=== PATIENT | female | born 1955 | race Caucasian/White ===

== ENCOUNTER 2016-11-17 16:15 | Emergency (ER) | payer MEDICARE, OTHER ==
--- NOTE | 2016-11-17 19:40 | ED CLINICAL REPORT ---
Clinical Report - Physicians/Mid Levels [facility] [address] [place] [address] 11/17/2016 16:16 Patient: [facility]OU [facility]IA [facility] [id number] Time Seen: 16:39 Nov 17 2016. Arrived- By private vehicle. Historian- patient. CPT: ER phys charges level 4 (#[id number]). HISTORY OF PRESENT ILLNESS Chief Complaint: LOWER EXTREMITY PAIN and SWELLING. Is still present. Severity is described as being moderate. It has become recently worse. The quality is noted to be sharp, aching and "pain". Symptoms located in the area of the right ankle, right foot, left foot and left ankle. The patient has had redness and swelling. She has had difficulty walking. No bladder dysfunction, bowel dysfunction, sensory loss or motor loss. Patient denies an injury. Similar symptoms previously: None. Recent medical care: Not recently seen/assessed. REVIEW OF SYSTEMS No cough, chest pain, difficulty breathing, fever or enlarged lymph nodes. No neck pain, back pain, headache, sore throat or abdominal pain. No vomiting, black stools or difficulty with urination. The patient has had skin rash. All systems otherwise negative, except as recorded above. PAST HISTORY ( Constipation. Lifestyle / Substance Problems. Brain Tumor. Nephrolithiasis. Healing Abscess. Abscess Check. Tetanus Status. Abscess. Cellulitis. Arthritis. Hypertension. ADDITIONAL SURGERIES: Brain Tumor. Cholecystectomy.). Medications: Tylenol Arthritis Pain Oral. Hydrochlorothiazide Oral (has been out for a month). Allergies: None. SOCIAL HISTORY Heavy tobacco smoker (cigarette)- less than 1 pack per day. History of drug use: marijuana. No alcohol use. ADDITIONAL NOTES The nursing notes have been reviewed. PHYSICAL EXAM Vital Signs: 11/17/2016 16:25 BP: 153/95. HR: 108. RR: 18. O2 saturation: 98%. Temp: 99.3 F. Pain level now: 10/10. Appearance: Alert. No acute distress. Eyes: Eyes normal inspection. ENT: Pharynx normal. Neck: Normal inspection. CVS: Normal heart rate and rhythm. Heart sounds normal. No cardiac murmur. Respiratory: No respiratory distress. Breath sounds normal. Abdomen: Soft and nontender. Skin: Skin intact. Skin warm. Moderate, erythematous, blanching skin rash located on the right foot and left foot. No skin rash involving the palms of the hands or soles of the feet. Extremities: Bilateral moderate 2+ pitting edema of the lower extremities involving both feet and both ankles. (Tenderness and erythema over both ankles and feet.). Neuro: Oriented X 3. No motor deficit. No sensory deficit. LABS, X-RAYS, AND EKG Laboratory Tests: UA-Culture if indicated: (SHRADDHA: 11/17/2016 17:30) ( [facility] [place] [facility]11[facility] Final results Test Result Flag Units (Reference) URINE COLOR WARREN URINE APPEARANCE TURBID URINE GLUCOSE NEGATIVE (NEGATIVE) URINE BILIRUBIN NEGATIVE (NEGATIVE) URINE KETONE NEGATIVE (NEGATIVE) URINE SPECIFIC GRAVITY 1.020 (1.010-1.030) URINE PH 5.5 (5.0-8.0) URINE PROTEIN 1+ (NEGATIVE) URINE UROBILINOGEN 2.0 EU/dL (0.2-1.0) The urobilinogen reagent area may react with interferingsubstances known to react with Jhonathan's reagent such asp-aminosalicylic acid and sulfonamides. Atypical colorreactions may be obtained in the presence of highconcentrations of p-aminobenzoic acid. The absence ofurobilinogen cannot be determined with this test. URINE NITRITE POSITIVE (NEGATIVE) URINE BLOOD 3+ (NEGATIVE) URINE LEUK ESTERASE POSITIVE (NEGATIVE) URINE RBC 10-25 rbc/hpf (0-1) URINE WBC 5-10 wbc/hpf (0-1) URINE EPITHELIAL CELLS 3-5 EPI/hpf (0-5) URINE BACTERIA MANY (4+) (NONE SEEN) URINE COMMENT CULTURE INDICATED URINE CULTURES ARE SET-UP BASED ON THE FOLLOWING CRITERIA:POSITIVE NITRITEPOSITIVE LEUKOCYTE ESTERASEGREATER THAN 10 WHITE BLOOD CELLSMODERATE (2+) OR GREATER BACTERIA Monoscreen: (SHRADDHA: 11/17/2016 17:00) ( [facility] [place] 11/17/2016 19:17) Final results Test Result Flag Units (Reference) MONOSCREEN NEGATIVE (NEGATIVE) CBC w Diff: (SHRADDHA: 11/17/2016 17:00) ( MsgRcvd 11/17/2016 17:54) Final results Test Result Flag Units (Reference) WHITE BLOOD COUNT 2.9 L K/uL (4.5-11.5) RED BLOOD COUNT 4.52 M/uL (4.00-5.20) HEMOGLOBIN 12.9 gm/dL (12.0-16.0) HEMATOCRIT 38.2 % (36.0-46.0) MEAN CELL VOLUME 85 fL (80-100) MEAN CORPUSCULAR HGB 29 pg (26-34) MEAN CORPUSCULAR HGB CONC 34 g/dL (31-37) RED CELL DISTRIBUTION WIDTH 15.5 H % (11.6-14.8) PLATELET COUNT 209 K/uL (150-400) POLY % 27 L % (50-75) BAND % 0 % (0-8) LYMPH 53 H % (25-40) MONO 17 H % (3-14) EOSINOPHIL % 2 % (0-4) BASOPHIL % 1 % (0-2) METAMYELOCYTE % 0 % (0-1) MYELOCYTE 0 % (0-1) OTHER CELL TYPE 0 POLYCHROMASIA 1+ ANISOCYTOSIS 1+ Urine Drug Screen: (SHRADDHA: 11/17/2016 17:30) ( MsgRcvd 11/17/2016 18:02) Final results Test Result Flag Units (Reference) AMPHETAMINE/METHAMPHETAMINE POSITIVE H (NEGATIVE) BARBITURATE NEGATIVE (NEGATIVE) BENZODIAZEPINE NEGATIVE (NEGATIVE) CANNABINOID POSITIVE H (NEGATIVE) COCAINE NEGATIVE (NEGATIVE) ECSTASY NEGATIVE (NEGATIVE) METHADONE NEGATIVE (NEGATIVE) OPIATE POSITIVE H (NEGATIVE) The urine drug screen is a qualitative screening test fordrug overdose and abuse. All screen results should beconsidered as presumptive.Drugs screened for are as follows:BenzodiazepinesCocaineAmphetamines/MetamphetaminesTHC (Tetrahydrocannabinol)OpiatesBarbituratesEcstasyMethadonePositive results are unconfirmed. For confirmation, notifythe lab for the specimen to be sent to the reference lab.All confirmations must be performed by a differentmethodology.The ingestion of natural herbal and plant productscontaining Ephedra/Ephedra metabolites can produce in urineone or more substances capable of cross reacting withamphetamine/methamphetamine immunoassays. These testsprovide a preliminary result only. A more specificalternative chemical method must be used to obtain aconfirmed analytical result. BNP: (SHRADDHA: 11/17/2016 17:00) ( [facility] [place] 11[facility]17/2016 17:40) Final results Test Result Flag Units (Reference) B-TYPE NATRIURETIC PEPTIDE 35.0 pg/ml (5-100) [id number]: (SHRADHDA: 11/17/2016 17:00) ( DcgRcvd 11/17/2016 18:14) Final results Test Result Flag Units (Reference) PROCALCITONIN <0.5 ng/mL (0-0.5) PCT Concentration: Interpretation : Risk/option for action PCT <=0.5 ng/mL : Systemic : Low risk forinfection(sepsis): progression to severeis not likely. : systemic infection.Local bacterial : CAUTION-PCT levelsinfection is : below 0.5 ng/mL do notpossible. : exclude an infection,because localizedinfections (withoutsystemic signs) may beassociated with suchlow levels. If PCT ismeasured very earlyafter a bacterialchallenge (usually <6hours), these valuesmay still be low. Inthis case PCT shouldbe re-assessed 6-24hours later. PCT >0.5 and : Systemic infection: Moderate risk for<= 2 ng/mL : (sepsis) is : progression to severepossible, but : systemic infection.other conditions : The patient should beare known to : closely monitoredelevate PCT. : both clinically andby re-assessing PCTwithin 6-24 hours. PCT > 2 ng/mL : Systemic infection: High risk for(sepsis) is likely: progression to severeunless other : systemic infection.causes are known. : PCT >= 10 ng/mL : Important systemic: High likelihood ofinflammatory : severe sepsis orresponse, almost : septic shock.exclusively due to:severe bacterial :sepsis or septic :shock. : CHEM 13 PANEL: (SHRADDHA: 11/17/2016 17:00) ( MsgRcvd 11/17/2016 18:01) Final results Test Result Flag Units (Reference) GLUCOSE 110 mg/dL (70-110) BUN 28 H mg/dL (7-18) CREATININE 1.0 mg/dL (0.6-1.3) Estimated GFR 59.71 mL/min Estimated GFR- >60 mL/min Note: Persistent reduction over 3 months in eGFR<60 mL/min/1.73 m2 defines CKD. Patients with eGFR values>=60 mL/min/1.73 m2 may also have CKD if evidence ofpersistent proteinuria. Additional information may be foundat www.kidney.org. SODIUM 139 mmol/L (136-145) POTASSIUM 3.1 L mmol/L (3.5-5.1) CHLORIDE 100 mmol/L (98-107) CARBON DIOXIDE 34 H mmol/L (21-32) CALCIUM 9.2 mg/dL (8.5-10.1) TOTAL PROTEIN 8.8 H g/dL (6.4-8.2) ALBUMIN 3.0 L g/dL (3.3-5.0) BILIRUBIN, TOTAL 0.6 mg/dL (0.0-1.0) ALKALINE PHOSPHATASE 77 U/L (46-116) AST (SGOT) 37 U/L (15-37) ALT (SGPT) 30 U/L (12-78) CPK 218 U/L (24-260) MAGNESIUM 2.0 mg/dL (1.8-2.4) TROPONIN I <0.05 L ng/mL (0.00-1.5) TROPONIN REFERENCE RANGE:<0.1 NEGATIVE0.1-1.5 INDETERMINANT>1.5 POSITIVE C-REACTIVE PROTEIN 9.7 H mg/dL (0.0-0.9) . PROGRESS AND PROCEDURES Course of Care: Rocephin 2g IV for UTI Prednisone for inflammation of the feet and ankles. Pt developed a drug rash after getting the rocephin so benadryl 25 mg IV and solumedrol 80 mg IV Patient is stable. Symptoms better. Patient/family counseled. Disposition: Discharged. Condition: stable. CLINICAL IMPRESSION Substance abuse problems: abuse of cannabis, opiates and methamphetamine. Acute urinary tract infection with cystitis. Bilateral ankle and foot pain due to arthritis. Leg edema and erythema bilaterally due to inflammation Hypokalemia due to diuretic. Drug rash due to rocephin. INSTRUCTIONS Warnings: Further evaluation is necessary. GENERAL WARNINGS: Return or contact your physician immediately if your condition worsens or changes unexpectedly, if not improving as expected, or if other problems arise. Your Current Medications: CONTINUE TAKING THE FOLLOWING MEDICATIONS: Hydrochlorothiazide Oral : has been out for a month. Tylenol Arthritis Pain Oral. Prescription Medications: Trimethoprim-Sulfamethoxazole DS: take 1 tablet orally every 12 hours for 7 days. Dispense fourteen (14). No refills. Prednisone 40 mg a day for 3 days. KCL 20 meq po q day for 5 days. OTC Medications: Motrin (available over the counter): take according to label instructions. Follow-up: Follow up with your doctor Monday in four days. Call for an appointment. Understanding of the discharge instructions verbalized by patient. (Electronically signed by Ramón Ortega MD 11/19/2016 19:54) Addenda for MARYLOU SANTAMARIA VisitID: [id number] Date: 11/17/2016 11/19/2016 17:18 Positive UA for e. Coli, reviewed by Bobbi Ang PA-C. Change RX to macrobid 100mg BID X 7days. Left VM on primary number, awaiting return call (Electronically signed by Cait Corley R.N. - 11/19/2016 17:18)
--- NOTE | 2016-11-17 19:40 | ED ORDER SUMMARY ---
..... Patient: MARYLOU SANTAMARIA OrderSheet [facility] VisitID: [id number] [place] [address] 61y, F Registration Date/Time: 11/17/2016 ORDER SHEET Weight: 68.0 kg (stated) Allergies: None GENERAL ORDERS: Cardiac Panel Stat (16:46 11/17/2016 Adilson VELIZ) (Ack 16:50 [facility] ER Tech1) (17:15 Karen R.N.) BNP Urgent (16:46 11/17/2016 Adilson VELIZ) (Ack 16:50 IJ[facility] ER Tech1) (17:15 Karen R.N.) UA-Culture if indicated Urgent (16:46 11/17/2016 Adilson VELIZ) (Ack 16:50 [facility] ER Tech1) (17:34 Karen R.N.) Urine Drug Screen Urgent (16:46 11/17/2016 Adilson VELIZ) (Ack 16:50 [facility] ER Tech1) (17:34 Karen R.N.) PCT (Procalcitonin) Urgent (16:46 11/17/2016 Adilson VELIZ) (Ack 16:50 [facility] ER Tech[facility]) (17:15 Karen R.N.) CRP Urgent (16:46 11/17/2016 Adilson VELIZ) (Ack 16:50 [facility] ER Tech[facility]) (17:15 Karen R.N.) Monoscreen Urgent (18:42 11/17/2016 Adilson VELIZ) (Ack 18:44 [facility] ER Tech1) (19:51 [facility] ER Cell Biologist) MEDICATION ORDERS: Prednisone PO 40 mg (NOW) (19:37 11/17/2016 Adilson VELIZ) (19:50 TBraza R.N.) IV FLUIDS: IV Saline Lock (16:46 11/17/2016 Adilson VELIZ) (17:15 Karen R.N.) Rocephin IV 2 gm/50mL (NOW) (18:42 11/17/2016 Adilson VELIZ) (19:14 TBraza R.N.) Benadryl IV 25 mg (NOW) (19:43 11/17/2016 Adilson VELIZ) (19:49 Meme R.N.) Solu-MEDROL IV 60 mg (NOW) (19:43 11/17/2016 Adilson VELIZ) (19:49 Meme R.N.) ORDER SHEET NOTES: [Electronically signed by Tarah Jurado R.N. (20:19 11/17/2016)] [Electronically signed by Ramón Ortega MD (19:54 11/19/2016)] [Electronically locked/signed by Tarah Jurado R.N. (20:19 11/17/2016)]
--- NOTE | 2016-11-17 19:40 | ED ORDER SUMMARY ---
..... Patient: MARYLOU SANTAMARIA OrderSheet [facility] VisitID: [id number] [place] [address] 61y, F Registration Date/Time: 11/17/2016 ORDER SHEET Weight: 68.0 kg (stated) Allergies: None GENERAL ORDERS: Cardiac Panel Stat (16:46 11/17/2016 Adilson VELIZ) (Ack 16:50 [facility] ER Tech[facility]) (17:15 Karen R.N.) BNP Urgent (16:46 11/17/2016 Adilson VELIZ) (Ack 16:50 IJurca ER Tech1) (17:15 Karen R.N.) UA-Culture if indicated Urgent (16:46 11/17/2016 Adilson VELIZ) (Ack 16:50 [facility] ER Tech1) (17:34 Karen R.N.) Urine Drug Screen Urgent (16:46 11/17/2016 Adilson VELIZ) (Ack 16:50 [facility] ER Tech1) (17:34 Karen R.N.) PCT (Procalcitonin) Urgent (16:46 11/17/2016 Adilson VELIZ) (Ack 16:50 [facility] ER Tech1) (17:15 Karen R.N.) CRP Urgent (16:46 11/17/2016 Adilson VELIZ) (Ack 16:50 [facility] ER Tech1) (17:15 Karen R.N.) Monoscreen Urgent (18:42 11/17/2016 Adilson VELIZ) (Ack 18:44 [facility] ER Tech1) (19:51 [facility] ER Blast Furnace Supervisor) MEDICATION ORDERS: Prednisone PO 40 mg (NOW) (19:37 11/17/2016 Adilson VELIZ) (19:50 TBraza R.N.) IV FLUIDS: IV Saline Lock (16:46 11/17/2016 Adilson VELIZ) (17:15 Karen R.N.) Rocephin IV 2 gm/50mL (NOW) (18:42 11/17/2016 Adilson VELIZ) (19:14 TBraza R.N.) Benadryl IV 25 mg (NOW) (19:43 11/17/2016 Adilson VELIZ) (19:49 Meme R.N.) Solu-MEDROL IV 60 mg (NOW) (19:43 11/17/2016 Adilson VELIZ) (19:49 Meme R.N.) ORDER SHEET NOTES: [Electronically signed by Tarah Jurado R.N. (20:19 11/17/2016)] [Electronically signed by Ramón Ortega MD (19:54 11/19/2016)] [Electronically locked/signed by Tarah Jurado R.N. (20:19 11/17/2016)]
--- NOTE | 2016-11-17 19:40 | ED NURSING NOTES ---
Clinical Report - Nurses [facility] [place] [address] 11/17/2016 16:16 Patient: MARYLOU SANTAMARIA [facility] [id number] TRIAGE Triage time 16:25. Acuity: LEVEL 3. Chief Complaint: RIGHT LOWER EXTREMITY PAIN, SWELLING and REDNESS. LEFT LOWER EXTREMITY PAIN, SWELLING and REDNESS. Alert. No acute distress. HEYDI COMA SCORE: Heydi Coma Scale: 15- eyes open spontaneously (4); best verbal response- oriented x 4 (5); best motor response- obeys commands (6). --16:31 Caroline Arrington R.N. 16:25 11/17/16. BP: 153/95. HR: 108. RR: 18. O2 saturation: 98%. Temp: 99.3 F (oral). Pain level now: 05/09. --16:31 Caroline Arrington R.N. Weight: 68 kg stated. Height/Length: 66 inches Per Patient. BMI: 24.2. --16:30 Caroline Arrington R.N. Medications Hydrochlorothiazide Oral (has been out for a month). --16:27 Caroline Arrington R.N. Tylenol Arthritis Pain Oral. --16:30 Caroline Arrington R.N. The following entry was struck and corrected by Caroline Arrington R.N., 16:28 (11/17/16) Reason for correction - other(correction). <<STRICKEN ENTRY-- Hydrochlorothiazide Oral. --16:27 Caroline Arrington R.N. --END STRIKE>>. Medication/allergy information source: the patient. --16:31 Caroline Arrington R.N. Allergies None. --16:28 Caroline Arrington R.N. History Arrived by private vehicle. Historian: patient. Unaccompanied. Primary physician (none). No injury occurred. This occurred (about 1 week). SOCIAL HX: Heavy tobacco smoker- less than 1 pack per day. History of drug use: marijuana. No alcohol use. FALL RISK ASSESSMENT: Fall risk assessment completed. No fall risk identified. FUNCTIONAL ASSESSMENT: Functional assessment: no impairments noted. Functional assessment performed: independent with the activities of daily living; mobility impairment present- this mobility impairment is a new problem. LEARNING NEEDS ASSESSMENT: The learning needs assessment revealed no barriers. --16:31 Caroline Arrington R.N. PROBLEMS: Constipation. Lifestyle / Substance Problems. Brain Tumor. Nephrolithiasis. Healing Abscess. Abscess Check. Tetanus Status. Abscess. Cellulitis. Arthritis. Hypertension. --16:29 Caroline Arrington R.N. MRSA Infection. Hepatitis. --16:53 Caroline Arrington R.N. ADDITIONAL SURGERIES: Brain Tumor. Cholecystectomy. --16:29 Caroline rArington R.N. Assessment GENERAL / NEURO / PSYCH: The patient is awake and alert, is oriented and cooperative and appears uncomfortable. She has good eye contact. RESPIRATORY: Respirations not labored. SKIN: Skin is warm and dry. --16:31 Caroline Arrington R.N. Interventions ID band on patient. To treatment room. --16:31 Caroline Arrington R.N. PHYSICAL ASSESSMENT 16:35 11/17/16. To room via wheelchair. Patient gowned. GENERAL / NEURO / PSYCH: Oriented X 4. Alert. Appears in no acute distress. EXTREMITIES: Erythema with tenderness to right ankle, right foot, left ankle and left foot. Bilateral edema of the lower extremities. SKIN: Skin is warm and dry. --16:35 Caroline Arrington R.N. NURSING PROGRESS NOTES 16:35 11/17/16. Patient gowned. Call light placed in reach. Side rails up x 1. Bed placed in lowest position. Brakes of bed on. --16:35 Caroline Arrington R.N. 17:15 11/17/2016 Site #1 started via IV in the right forearm with an 20g angiocath, with aseptic technique and good blood return; one attempt. Blood drawn: rainbow set. Labeled in the presence of the patient and sent to the lab. Saline lock flushed with 10 mL saline. --17:15 Caroline Arrington R.N. 17:36 assisted pt to WC, into BR and back to bed. :patient confirmed. Clean catch urine collected with return of mary-colored cloudy urine; odor is foul-smelling; sample sent to lab. Specimen labeled in the presence of the patient. --17:38 Caroline Arrington R.N. 19:14 11/17/2016 Started 2 gm of Rocephin (CefTRIAXone Sodium) IVPB in bag #1 50 mL; at 150 mL/hr over 20 minute(s) via site #1 via IV pump. Allergies verified and confirmed 5 rights. IV patency established. IV site checked: no pain, redness, or swelling. IV flushed thoroughly pre- and post-medication administration. --19:14 Lluvia Mcfarlane 19:29 11/17/2016 Rocephin IVPB Discontinued: bag #1 completed. Total amount infused: 50 mL. IV patency established. IV site checked: no pain, redness, or swelling. IV flushed thoroughly. --19:29 Lluvia Mcfarlane ( pt called me to the room and said she was itching, no redness or rash seen, antibiotics are complete, will continue to monitor, pt denies SOB. No swelling of the tongue or face noted.). --19:30 Lluvia Mcfarlane 19:49 11/17/2016 Benadryl (DiphenhydrAMINE HCl) IVP 25 mg given over 1 minute(s) via site #1. Allergies verified, confirmed 5 rights and sedative warning given to the patient. IV patency established. IV site checked: no pain, redness, or swelling. IV flushed thoroughly pre- and post-medication administration. IVP given by RN. --19:49 Lluvia Mcfarlane 19:49 11/17/2016 SOLU-MEDROL (MethylPREDNISolone Sodium Succ) IVP 60 mg given over 1 minute(s) via site #1. Allergies verified and confirmed 5 rights. IV patency established. IV site checked: no pain, redness, or swelling. IV flushed thoroughly pre- and post-medication administration. IVP given by RN. --19:49 Lluvia Mcfarlane 19:50 11/17/2016 Prednisone PO 40 mg given. Allergies verified and confirmed 5 rights. --19:50 Lluvia Mcfarlane ( back in room to check on pt, pt has what appears to be hives at this time, is aware and orders were carried out.). --19:51 Lluvia Mcfarlane DISPOSITION / DISCHARGE 20:19 11/17/2016 Site #1 removed upon discharge. Catheter intact. Bandaid applied. --20:19 Lluvia Mcfarlane Departure time: 20:15. Condition at departure: improved. ( hives have improved and pt denies itching at this time). No learning barriers present. Discharge instructions provided and reviewed with the patient. Reviewed medication(s) side effects, precautions, dosing and course information. Prescription(s) given to the patient. Follow up contact number with PCP. Patient verbalized understanding. Written instructions provided in Faroese. No warning instructions, treatment instructions, referrals given to the patient, diet instructions or activity restrictions. No note given or stop smoking instructions. The patient was discharged by the physician. She was discharged home and accompanied by gas dispatcher. She left the Emergency Department ambulatory and via private vehicle. Brush Clearer Surveying driving. FALL RISK ASSESSMENT: Fall risk assessment completed. No fall risk identified. --20:19 Lluvia Mcfarlane 20:17 11/17/16. BP: 130/68. HR: 98. RR: 18. O2 saturation: 99%. Temp: deferred. Pain level now: 09/09. --20:19 Lluvia Mcfarlane Locked/Released at 11/17/2016 20:19 by Lluvia Mcfarlane
--- NOTE | 2016-11-17 19:40 | ED CLINICAL REPORT ---
Clinical Report - Physicians/Mid Levels [facility] [address] [place] [address] 11/17/2016 16:16 [id number] Time Seen: 16:39 Nov 17 2016. Arrived- By private vehicle. Historian- patient. CPT: ER phys charges level 4 (#[id number]). HISTORY OF PRESENT ILLNESS Chief Complaint: LOWER EXTREMITY PAIN and SWELLING. Is still present. Severity is described as being moderate. It has become recently worse. The quality is noted to be sharp, aching and "pain". Symptoms located in the area of the right ankle, right foot, left foot and left ankle. The patient has had redness and swelling. She has had difficulty walking. No bladder dysfunction, bowel dysfunction, sensory loss or motor loss. Patient denies an injury. Similar symptoms previously: None. Recent medical care: Not recently seen/assessed. REVIEW OF SYSTEMS No cough, chest pain, difficulty breathing, fever or enlarged lymph nodes. No neck pain, back pain, headache, sore throat or abdominal pain. No vomiting, black stools or difficulty with urination. The patient has had skin rash. All systems otherwise negative, except as recorded above. PAST HISTORY ( Constipation. Lifestyle / Substance Problems. Brain Tumor. Nephrolithiasis. Healing Abscess. Abscess Check. Tetanus Status. Abscess. Cellulitis. Arthritis. Hypertension. ADDITIONAL SURGERIES: Brain Tumor. Cholecystectomy.). Medications: Tylenol Arthritis Pain Oral. Hydrochlorothiazide Oral (has been out for a month). Allergies: None. SOCIAL HISTORY Heavy tobacco smoker (cigarette)- less than 1 pack per day. History of drug use: marijuana. No alcohol use. ADDITIONAL NOTES The nursing notes have been reviewed. PHYSICAL EXAM Vital Signs: 11/17/2016 16:25 BP: 153/95. HR: 108. RR: 18. O2 saturation: 98%. Temp: 99.3 F. Pain level now: 10/10. Appearance: Alert. No acute distress. Eyes: Eyes normal inspection. ENT: Pharynx normal. Neck: Normal inspection. CVS: Normal heart rate and rhythm. Heart sounds normal. No cardiac murmur. Respiratory: No respiratory distress. Breath sounds normal. Abdomen: Soft and nontender. Skin: Skin intact. Skin warm. Moderate, erythematous, blanching skin rash located on the right foot and left foot. No skin rash involving the palms of the hands or soles of the feet. Extremities: Bilateral moderate 2+ pitting edema of the lower extremities involving both feet and both ankles. (Tenderness and erythema over both ankles and feet.). Neuro: Oriented X 3. No motor deficit. No sensory deficit. LABS, X-RAYS, AND EKG Laboratory Tests: UA-Culture if indicated: (SHRADDHA: 11/17/2016 17:30) ( [facility] 11/17/2016 18:11) Final results Test Result Flag Units (Reference) URINE COLOR WARREN URINE APPEARANCE TURBID URINE GLUCOSE NEGATIVE (NEGATIVE) URINE BILIRUBIN NEGATIVE (NEGATIVE) URINE KETONE NEGATIVE (NEGATIVE) URINE SPECIFIC GRAVITY 1.020 (1.010-1.030) URINE PH 5.5 (5.0-8.0) URINE PROTEIN 1+ (NEGATIVE) URINE UROBILINOGEN 2.0 EU/dL (0.2-1.0) The urobilinogen reagent area may react with interferingsubstances known to react with Jhonathan's reagent such asp-aminosalicylic acid and sulfonamides. Atypical colorreactions may be obtained in the presence of highconcentrations of p-aminobenzoic acid. The absence ofurobilinogen cannot be determined with this test. URINE NITRITE POSITIVE (NEGATIVE) URINE BLOOD 3+ (NEGATIVE) URINE LEUK ESTERASE POSITIVE (NEGATIVE) URINE RBC 10-25 rbc/hpf (0-1) URINE WBC 5-10 wbc/hpf (0-1) URINE EPITHELIAL CELLS 3-5 EPI/hpf (0-5) URINE BACTERIA MANY (4+) (NONE SEEN) URINE COMMENT CULTURE INDICATED URINE CULTURES ARE SET-UP BASED ON THE FOLLOWING CRITERIA:POSITIVE NITRITEPOSITIVE LEUKOCYTE ESTERASEGREATER THAN 10 WHITE BLOOD CELLSMODERATE (2+) OR GREATER BACTERIA Monoscreen: (SHRADDHA: 11/17/2016 17:00) ( [facility] 11/17/2016 19:17) Final results Test Result Flag Units (Reference) MONOSCREEN NEGATIVE (NEGATIVE) CBC w Diff: (SHRADDHA: 11/17/2016 17:00) ( MsgRcvd 11/17/2016 17:54) Final results Test Result Flag Units (Reference) WHITE BLOOD COUNT 2.9 L K/uL (4.5-11.5) RED BLOOD COUNT 4.52 M/uL (4.00-5.20) HEMOGLOBIN 12.9 gm/dL (12.0-16.0) HEMATOCRIT 38.2 % (36.0-46.0) MEAN CELL VOLUME 85 fL (80-100) MEAN CORPUSCULAR HGB 29 pg (26-34) MEAN CORPUSCULAR HGB CONC 34 g/dL (31-37) RED CELL DISTRIBUTION WIDTH 15.5 H % (11.6-14.8) PLATELET COUNT 209 K/uL (150-400) POLY % 27 L % (50-75) BAND % 0 % (0-8) LYMPH 53 H % (25-40) MONO 17 H % (3-14) EOSINOPHIL % 2 % (0-4) BASOPHIL % 1 % (0-2) METAMYELOCYTE % 0 % (0-1) MYELOCYTE 0 % (0-1) OTHER CELL TYPE 0 POLYCHROMASIA 1+ ANISOCYTOSIS 1+ Urine Drug Screen: (SHRADDHA: 11/17/2016 17:30) ( MsgRcvd 11/17/2016 18:02) Final results Test Result Flag Units (Reference) AMPHETAMINE/METHAMPHETAMINE POSITIVE H (NEGATIVE) BARBITURATE NEGATIVE (NEGATIVE) BENZODIAZEPINE NEGATIVE (NEGATIVE) CANNABINOID POSITIVE H (NEGATIVE) COCAINE NEGATIVE (NEGATIVE) ECSTASY NEGATIVE (NEGATIVE) METHADONE NEGATIVE (NEGATIVE) OPIATE POSITIVE H (NEGATIVE) The urine drug screen is a qualitative screening test fordrug overdose and abuse. All screen results should beconsidered as presumptive.Drugs screened for are as follows:BenzodiazepinesCocaineAmphetamines/MetamphetaminesTHC (Tetrahydrocannabinol)OpiatesBarbituratesEcstasyMethadonePositive results are unconfirmed. For confirmation, notifythe lab for the specimen to be sent to the reference lab.All confirmations must be performed by a differentmethodology.The ingestion of natural herbal and plant productscontaining Ephedra/Ephedra metabolites can produce in urineone or more substances capable of cross reacting withamphetamine/methamphetamine immunoassays. These testsprovide a preliminary result only. A more specificalternative chemical method must be used to obtain aconfirmed analytical result. BNP: (SHRADDHA: 11/17/2016 17:00) ( [facility] 11/17/2016 17:40) Final results Test Result Flag Units (Reference) B-TYPE NATRIURETIC PEPTIDE 35.0 pg/ml (5-100) [id number]: (SHRADDAH: 11/17/2016 17:00) ( CagRcvd 11/17/2016 18:14) Final results Test Result Flag Units (Reference) PROCALCITONIN <0.5 ng/mL (0-0.5) PCT Concentration: Interpretation : Risk/option for action PCT <=0.5 ng/mL : Systemic : Low risk forinfection(sepsis): progression to severeis not likely. : systemic infection.Local bacterial : CAUTION-PCT levelsinfection is : below 0.5 ng/mL do notpossible. : exclude an infection,because localizedinfections (withoutsystemic signs) may beassociated with suchlow levels. If PCT ismeasured very earlyafter a bacterialchallenge (usually <6hours), these valuesmay still be low. Inthis case PCT shouldbe re-assessed 6-24hours later. PCT >0.5 and : Systemic infection: Moderate risk for<= 2 ng/mL : (sepsis) is : progression to severepossible, but : systemic infection.other conditions : The patient should beare known to : closely monitoredelevate PCT. : both clinically andby re-assessing PCTwithin 6-24 hours. PCT > 2 ng/mL : Systemic infection: High risk for(sepsis) is likely: progression to severeunless other : systemic infection.causes are known. : PCT >= 10 ng/mL : Important systemic: High likelihood ofinflammatory : severe sepsis orresponse, almost : septic shock.exclusively due to:severe bacterial :sepsis or septic :shock. : CHEM 13 PANEL: (SHRADDHA: 11/17/2016 17:00) ( MsgRcvd 11/17/2016 18:01) Final results Test Result Flag Units (Reference) GLUCOSE 110 mg/dL (70-110) BUN 28 H mg/dL (7-18) CREATININE 1.0 mg/dL (0.6-1.3) Estimated GFR 59.71 mL/min Estimated GFR- >60 mL/min Note: Persistent reduction over 3 months in eGFR<60 mL/min/1.73 m2 defines CKD. Patients with eGFR values>=60 mL/min/1.73 m2 may also have CKD if evidence ofpersistent proteinuria. Additional information may be foundat www.kidney.org. SODIUM 139 mmol/L (136-145) POTASSIUM 3.1 L mmol/L (3.5-5.1) CHLORIDE 100 mmol/L (98-107) CARBON DIOXIDE 34 H mmol/L (21-32) CALCIUM 9.2 mg/dL (8.5-10.1) TOTAL PROTEIN 8.8 H g/dL (6.4-8.2) ALBUMIN 3.0 L g/dL (3.3-5.0) BILIRUBIN, TOTAL 0.6 mg/dL (0.0-1.0) ALKALINE PHOSPHATASE 77 U/L (46-116) AST (SGOT) 37 U/L (15-37) ALT (SGPT) 30 U/L (12-78) CPK 218 U/L (24-260) MAGNESIUM 2.0 mg/dL (1.8-2.4) TROPONIN I <0.05 L ng/mL (0.00-1.5) TROPONIN REFERENCE RANGE:<0.1 NEGATIVE0.1-1.5 INDETERMINANT>1.5 POSITIVE C-REACTIVE PROTEIN 9.7 H mg/dL (0.0-0.9) . PROGRESS AND PROCEDURES Course of Care: Rocephin 2g IV for UTI Prednisone for inflammation of the feet and ankles. Pt developed a drug rash after getting the rocephin so benadryl 25 mg IV and solumedrol 80 mg IV Patient is stable. Symptoms better. Patient/family counseled. Disposition: Discharged. Condition: stable. CLINICAL IMPRESSION Substance abuse problems: abuse of cannabis, opiates and methamphetamine. Acute urinary tract infection with cystitis. Bilateral ankle and foot pain due to arthritis. Leg edema and erythema bilaterally due to inflammation Hypokalemia due to diuretic. Drug rash due to rocephin. INSTRUCTIONS Warnings: Further evaluation is necessary. GENERAL WARNINGS: Return or contact your physician immediately if your condition worsens or changes unexpectedly, if not improving as expected, or if other problems arise. Your Current Medications: CONTINUE TAKING THE FOLLOWING MEDICATIONS: Hydrochlorothiazide Oral : has been out for a month. Tylenol Arthritis Pain Oral. Prescription Medications: Trimethoprim-Sulfamethoxazole DS: take 1 tablet orally every 12 hours for 7 days. Dispense fourteen (14). No refills. Prednisone 40 mg a day for 3 days. KCL 20 meq po q day for 5 days. OTC Medications: Motrin (available over the counter): take according to label instructions. Follow-up: Follow up with your doctor Monday in four days. Call for an appointment. Understanding of the discharge instructions verbalized by patient. (Electronically signed by Ramón Ortega MD 11/19/2016 19:54) Addenda for MARYLOU SANTAMARIA VisitID: [id number] Date: 11/17/2016 11/19/2016 17:18 Positive UA for e. Coli, reviewed by Bobbi Ang PA-C. Change RX to macrobid 100mg BID X 7days. Left VM on primary number, awaiting return call (Electronically signed by Cait Corley R.N. - 11/19/2016 17:18)
--- NOTE | 2016-11-17 19:40 | ED NURSING NOTES ---
Clinical Report - Nurses [facility] [place] [address] 11/17/2016 16:16 [id number] Triage time 16:25. Acuity: LEVEL 3. Chief Complaint: RIGHT LOWER EXTREMITY PAIN, SWELLING and REDNESS. LEFT LOWER EXTREMITY PAIN, SWELLING and REDNESS. Alert. No acute distress. HEYDI COMA SCORE: Heydi Coma Scale: 15- eyes open spontaneously (4); best verbal response- oriented x 4 (5); best motor response- obeys commands (6). --16:31 Caroline Arrington R.N. 16:25 11/17/16. BP: 153/95. HR: 108. RR: 18. O2 saturation: 98%. Temp: 99.3 F (oral). Pain level now: 05/09. --16:31 Caroline Arrington R.N. Weight: 68 kg stated. Height/Length: 66 inches Per Patient. BMI: 24.2. --16:30 Caroline Arrington R.N. Medications Hydrochlorothiazide Oral (has been out for a month). --16:27 Caroline Arrington R.N. Tylenol Arthritis Pain Oral. --16:30 Caroline Arrington R.N. The following entry was struck and corrected by Caroline Arrington R.N., 16:28 (11/17/16) Reason for correction - other(correction). <<STRICKEN ENTRY-- Hydrochlorothiazide Oral. --16:27 Caroline Arrington R.N. --END STRIKE>>. Medication/allergy information source: the patient. --16:31 Caroline Arrington R.N. Allergies None. --16:28 Caroline Arrington R.N. History Arrived by private vehicle. Historian: patient. Unaccompanied. Primary physician (none). No injury occurred. This occurred (about 1 week). SOCIAL HX: Heavy tobacco smoker- less than 1 pack per day. History of drug use: marijuana. No alcohol use. FALL RISK ASSESSMENT: Fall risk assessment completed. No fall risk identified. FUNCTIONAL ASSESSMENT: Functional assessment: no impairments noted. Functional assessment performed: independent with the activities of daily living; mobility impairment present- this mobility impairment is a new problem. LEARNING NEEDS ASSESSMENT: The learning needs assessment revealed no barriers. --16:31 Caroline Arrington R.N. PROBLEMS: Constipation. Lifestyle / Substance Problems. Brain Tumor. Nephrolithiasis. Healing Abscess. Abscess Check. Tetanus Status. Abscess. Cellulitis. Arthritis. Hypertension. --16:29 Caroline Arrington R.N. MRSA Infection. Hepatitis. --16:53 Caroline Arrington R.N. ADDITIONAL SURGERIES: Brain Tumor. Cholecystectomy. --16:29 Caroline Arrington R.N. Assessment GENERAL / NEURO / PSYCH: The patient is awake and alert, is oriented and cooperative and appears uncomfortable. She has good eye contact. RESPIRATORY: Respirations not labored. SKIN: Skin is warm and dry. --16:31 Caroline Arrington R.N. Interventions ID band on patient. To treatment room. --16:31 Caroline Arrington R.N. PHYSICAL ASSESSMENT 16:35 11/17/16. To room via wheelchair. Patient gowned. GENERAL / NEURO / PSYCH: Oriented X 4. Alert. Appears in no acute distress. EXTREMITIES: Erythema with tenderness to right ankle, right foot, left ankle and left foot. Bilateral edema of the lower extremities. SKIN: Skin is warm and dry. --16:35 Caroline Arrington R.N. NURSING PROGRESS NOTES 16:35 11/17/16. Patient gowned. Call light placed in reach. Side rails up x 1. Bed placed in lowest position. Brakes of bed on. --16:35 Caroline Arrington R.N. 17:15 11/17/2016 Site #1 started via IV in the right forearm with an 20g angiocath, with aseptic technique and good blood return; one attempt. Blood drawn: rainbow set. Labeled in the presence of the patient and sent to the lab. Saline lock flushed with 10 mL saline. --17:15 Caroline Arrington R.N. 17:36 assisted pt to WC, into BR and back to bed. :patient confirmed. Clean catch urine collected with return of mary-colored cloudy urine; odor is foul-smelling; sample sent to lab. Specimen labeled in the presence of the patient. --17:38 Caroline Arrington R.N. 19:14 11/17/2016 Started 2 gm of Rocephin (CefTRIAXone Sodium) IVPB in bag #1 50 mL; at 150 mL/hr over 20 minute(s) via site #1 via IV pump. Allergies verified and confirmed 5 rights. IV patency established. IV site checked: no pain, redness, or swelling. IV flushed thoroughly pre- and post-medication administration. --19:14 Lluvia Mcfarlane 19:29 11/17/2016 Rocephin IVPB Discontinued: bag #1 completed. Total amount infused: 50 mL. IV patency established. IV site checked: no pain, redness, or swelling. IV flushed thoroughly. --19:29 Lluvia Mcfarlane ( pt called me to the room and said she was itching, no redness or rash seen, antibiotics are complete, will continue to monitor, pt denies SOB. No swelling of the tongue or face noted.). --19:30 Lluvia Mcfarlane 19:49 11/17/2016 Benadryl (DiphenhydrAMINE HCl) IVP 25 mg given over 1 minute(s) via site #1. Allergies verified, confirmed 5 rights and sedative warning given to the patient. IV patency established. IV site checked: no pain, redness, or swelling. IV flushed thoroughly pre- and post-medication administration. IVP given by RN. --19:49 Lluvia Mcfarlane 19:49 11/17/2016 SOLU-MEDROL (MethylPREDNISolone Sodium Succ) IVP 60 mg given over 1 minute(s) via site #1. Allergies verified and confirmed 5 rights. IV patency established. IV site checked: no pain, redness, or swelling. IV flushed thoroughly pre- and post-medication administration. IVP given by RN. --19:49 Lluvia Mcfarlane 19:50 11/17/2016 Prednisone PO 40 mg given. Allergies verified and confirmed 5 rights. --19:50 Lluvia Mcfarlane ( back in room to check on pt, pt has what appears to be hives at this time, is aware and orders were carried out.). --19:51 Lluvia Mcfarlane DISPOSITION / DISCHARGE 20:19 11/17/2016 Site #1 removed upon discharge. Catheter intact. Bandaid applied. --20:19 Lluvia Mcfarlane Departure time: 20:15. Condition at departure: improved. ( hives have improved and pt denies itching at this time). No learning barriers present. Discharge instructions provided and reviewed with the patient. Reviewed medication(s) side effects, precautions, dosing and course information. Prescription(s) given to the patient. Follow up contact number with PCP. Patient verbalized understanding. Written instructions provided in Kazakh. No warning instructions, treatment instructions, referrals given to the patient, diet instructions or activity restrictions. No note given or stop smoking instructions. The patient was discharged by the physician. She was discharged home and accompanied by control room helper. She left the Emergency Department ambulatory and via private vehicle. Medical Concierge driving. FALL RISK ASSESSMENT: Fall risk assessment completed. No fall risk identified. --20:19 Lluvia Mcfarlane 20:17 11/17/16. BP: 130/68. HR: 98. RR: 18. O2 saturation: 99%. Temp: deferred. Pain level now: 09/09. --20:19 Lluvia Mcfarlane Locked/Released at 11/17/2016 20:19 by Lluvia Mcfarlane
--- NOTE | 2016-11-19 19:54 | ED MED RECONCILIATION SUMMARY ---
Patient: MARYLOU SANTAMARIA Medication Reconciliation Report [facility] VisitID: [id number] [place] [address] 61y, F Registration Date/Time: 11/17/2016 Weight: 68.0 kg Height/Length: 66 in. BMI: 24.2 ALLERGIES: None The patient's Home Medications are listed below: CONTINUE TAKING THE FOLLOWING MEDICATIONS: Hydrochlorothiazide Oral, has been out for a month Tylenol Arthritis Pain Oral The source(s) of the original Home Medication information: patient The following Medications were given to the patient in the Emergency Department: Rocephin [IVPB] IVPB bolus 0, then 2 gm 150 mL/hr, administered: 11/17/2016 7:14:00 PM Benadryl [IVP] IVP 25 mg, administered: 11/17/2016 7:49:00 PM SOLU-MEDROL [IVP] IVP 60 mg, administered: 11/17/2016 7:49:00 PM Prednisone [PO] PO 40 mg, administered: 11/17/2016 7:50:00 PM The following Medications were prescribed to the patient: Motrin (available over the counter): take according to label instructions. -- Ramón Ortega MD Prednisone 40 mg a day for 3 days. KCL 20 meq po q day for 5 days. -- Ramón Ortega MD Trimethoprim-Sulfamethoxazole DS: take 1 tablet orally every 12 hours for 7 days. Dispense fourteen (14). No refills. -- Ramón Ortega MD
--- NOTE | 2016-11-19 19:54 | ED MAR SUMMARY ---
..... Medication Administration Record [facility] [address] [place] [address] Patient: MARYLOU SANTAMARIA Visit ID: [id number] 61y, F Weight: 68.0 kg Height/Length: 66 in BMI: 24.2 ALLERGIES: None Start 19:14 11/17/2016 Maeve, R.N., Stop 19:29 11/17/2016 Maeve, R.N. Medication Administered: ROCEPHIN [IVPB] (CEFTRIAXONE SODIUM), Dose: 2 gm IVPB over 20 minute(s), Rate: 150 mL/hr, Dispensed: 50 mL bag, Site: #1 right forearm. Medication Ordered: Rocephin IV 2 gm/50mL (NOW). Given 19:49 11/17/2016 Maeve, R.N. Medication Administered: BENADRYL [IVP] (DIPHENHYDRAMINE HCL), Dose: 25 mg IVP over 1 minute(s), Site: #1 right forearm. Medication Ordered: Benadryl IV 25 mg (NOW). Given 19:49 11/17/2016 Maeve, R.N. Medication Administered: SOLU-MEDROL [IVP] (METHYLPREDNISOLONE SODIUM SUCC), Dose: 60 mg IVP over 1 minute(s), Site: #1 right forearm. Medication Ordered: Solu-MEDROL IV 60 mg (NOW). Given 19:50 11/17/2016 Maeve, R.N. Medication Administered: PREDNISONE [PO], Dose: 40 mg PO. Medication Ordered: Prednisone PO 40 mg (NOW).
--- NOTE | 2016-11-19 19:54 | ED MED RECONCILIATION SUMMARY ---
Patient: MARYLOU SANTAMARIA Medication Reconciliation Report [facility] VisitID: [id number] [place] [address] 61y, F Registration Date/Time: 11/17/2016 Weight: 68.0 kg Height/Length: 66 in. BMI: 24.2 ALLERGIES: None The patient's Home Medications are listed below: CONTINUE TAKING THE FOLLOWING MEDICATIONS: Hydrochlorothiazide Oral, has been out for a month Tylenol Arthritis Pain Oral The source(s) of the original Home Medication information: patient The following Medications were given to the patient in the Emergency Department: Rocephin [IVPB] IVPB bolus 0, then 2 gm 150 mL/hr, administered: 11/17/2016 7:14:00 PM Benadryl [IVP] IVP 25 mg, administered: 11/17/2016 7:49:00 PM SOLU-MEDROL [IVP] IVP 60 mg, administered: 11/17/2016 7:49:00 PM Prednisone [PO] PO 40 mg, administered: 11/17/2016 7:50:00 PM The following Medications were prescribed to the patient: Motrin (available over the counter): take according to label instructions. -- Ramón Ortega MD Prednisone 40 mg a day for 3 days. KCL 20 meq po q day for 5 days. -- Ramón Ortega MD Trimethoprim-Sulfamethoxazole DS: take 1 tablet orally every 12 hours for 7 days. Dispense fourteen (14). No refills. -- Ramón Ortega MD
--- NOTE | 2016-11-19 19:54 | ED DISCHARGE INSTRUCTIONS ---
Patient: MARYLOU SANTAMARIA General Instructions [facility] VisitID: [id number] [place] [address] 61y, F Registration Date/Time: 11/17/2016 Substance abuse problems: abuse of cannabis, opiates and methamphetamine. Acute urinary tract infection with cystitis. Bilateral ankle and foot pain due to arthritis. Leg edema and erythema bilaterally due to inflammation Hypokalemia due to diuretic. Drug rash due to rocephin. INSTRUCTIONS Warnings: Further evaluation is necessary. GENERAL WARNINGS: Return or contact your physician immediately if your condition worsens or changes unexpectedly, if not improving as expected, or if other problems arise. Your Current Medications: CONTINUE TAKING THE FOLLOWING MEDICATIONS: Hydrochlorothiazide Oral : has been out for a month. Tylenol Arthritis Pain Oral. Prescription Medications: Trimethoprim-Sulfamethoxazole DS: take 1 tablet orally every 12 hours for 7 days. Dispense fourteen (14). No refills. Prednisone 40 mg a day for 3 days. KCL 20 meq po q day for 5 days. OTC Medications: Motrin (available over the counter): take according to label instructions. Follow-up: Follow up with your doctor Monday in four days. Call for an appointment. Understanding of the discharge instructions verbalized by patient. ADDITIONAL INFORMATION Bladder Infection,Female (Adult) A bladder infection ("cystitis" or "UTI") usually causes a constant urge to urinate and a burning when passing urine. Urine may be cloudy, smelly or dark. There may be pain in the lower abdomen. A bladder infection occurs when bacteria from the vaginal area enter the bladder opening (urethra). This can occur from sexual intercourse, wearing tight clothing, dehydration and other factors. Home Care: Drink lots of fluids (at least 6-8 glasses a day, unless you must restrict fluids for other medical reasons). This will force the medicine into your urinary system and flush the bacteria out of your body. Avoid sexual intercourse until your symptoms are gone. Avoid caffeine, alcohol and spicy foods. These can irritate the bladder. A bladder infection is treated with antibiotics. You may also be given Pyridium (generic = phenazopyridine) to reduce the burning sensation. This medicine will cause your urine to become a bright orange color. The orange urine may stain clothing. You may wear a pad or panty-liner to protect clothing. Preventing Future Infections: Always wipe from front to back after a bowel movement. Keep the genital area clean and dry. Drink plenty of fluids each day to avoid dehydration. Both sexual partners should wash before intercourse. Urinate right after intercourse to flush out the bladder. Wear cotton underwear and cotton-lined panty hose; avoid tight-fitting pants. If you are on control pills and are having frequent bladder infections, discuss with your doctor. Follow Up: Return to this facility or see your doctor if ALL symptoms are not gone after three days of treatment. Get Prompt Medical Attention if any of the following occur: Fever of 100.4F (38C) or higher, or as directed by your healthcare provider No improvement by the third day of treatment Increasing back or abdominal pain Repeated vomiting; unable to keep medicine down Weakness, dizziness or fainting Vaginal discharge Pain, redness or swelling in the labia (outer vaginal area) You have been given the following additional information: Bladder Infection, Female (Adult) (Electronically signed by Ramón Ortega MD 11/19/2016 19:54)
--- NOTE | 2016-11-19 19:54 | ED MAR SUMMARY ---
..... Medication Administration Record [facility] [address] [place] [address] Patient: MARYLOU SANTAMARIA Visit ID: [id number] 61y, F Weight: 68.0 kg Height/Length: 66 in BMI: 24.2 ALLERGIES: None Start 19:14 11/17/2016 Maeve, R.N., Stop 19:29 11/17/2016 Maeve, R.N. Medication Administered: ROCEPHIN [IVPB] (CEFTRIAXONE SODIUM), Dose: 2 gm IVPB over 20 minute(s), Rate: 150 mL/hr, Dispensed: 50 mL bag, Site: #1 right forearm. Medication Ordered: Rocephin IV 2 gm/50mL (NOW). Given 19:49 11/17/2016 Maeve, R.N. Medication Administered: BENADRYL [IVP] (DIPHENHYDRAMINE HCL), Dose: 25 mg IVP over 1 minute(s), Site: #1 right forearm. Medication Ordered: Benadryl IV 25 mg (NOW). Given 19:49 11/17/2016 Maeve, R.N. Medication Administered: SOLU-MEDROL [IVP] (METHYLPREDNISOLONE SODIUM SUCC), Dose: 60 mg IVP over 1 minute(s), Site: #1 right forearm. Medication Ordered: Solu-MEDROL IV 60 mg (NOW). Given 19:50 11/17/2016 Maeve, R.N. Medication Administered: PREDNISONE [PO], Dose: 40 mg PO. Medication Ordered: Prednisone PO 40 mg (NOW).
== END 2016-11-17 20:15 | disposition home or self-care (01) ==
LOC: ED SRH 16:15
DX: M19.071 Primary osteoarthritis, right ankle and foot (principal); L53.9 Erythematous condition, unspecified; M19.072 Primary osteoarthritis, left ankle and foot; N30.90 Cystitis, unspecified without hematuria; R60.0 Localized edema; E87.6 Hypokalemia; F12.10 Cannabis abuse, uncomplicated; F11.10 Opioid abuse, uncomplicated; F15.10 Other stimulant abuse, uncomplicated; L27.0 Generalized skin eruption due to drugs and medicaments taken internally
CPT/HCPCS: 90004; 90100; 90148; 90469; 90616; 91320; 91585; 91643; 92610; 92720; 92760; 92761; 92762; 92763; 92764; 92765; 92766; 92767; 93004; 95059; 98370